=== PATIENT | male | born 1975 | race Caucasian/White ===

== ENCOUNTER 2022-04-05 07:58 | Outpatient (CLI) | payer BC, SELFPAY ==
--- NOTE | 2022-04-19 19:55 | WPDHOMESLEEP ---
Sleep Study - Home Unattended Date of Study: 03/29/22 Ordering Provider: Aspen Shell MD Interpreting Provider: Deyanira Gregory, DO Home Sleep Study Type: Apnea Link Air Height: 1.88 m Weight: 127.006 kg Body Mass Index: 35.9 Neck Circumference (inches): 18.5 [place]: 10 Reason for Sleep Study Unrefreshing sleep Sleep History The patient is a 47-year-old male with seasonal allergies, prediabetes, hyperlipidemia and nocturia had a sleep study ordered by his primary care for evaluation of sleep apnea. The patient frequently awakens from sleep short of breath. He frequently awakens at night with heartburn, belching or cough. He frequently snores loud enough that others complain. He frequently has trouble sleeping when he has a cold. He occasionally wakes up gasping for air throughout the night. He occasionally has breathing problems at night observed by himself or others. He frequently sweats excessively at night. He frequently has heart palpitations or irregular heartbeats during the night. He rarely falls asleep during the day and rarely falls asleep while driving. He occasionally experiences loss of muscle tone when extremely emotional. He occasionally has trouble at school or work due to sleepiness. He rarely feels unable to move 1 waking up or falling asleep. He rarely experiences vivid dreamlike scenes upon awakening or falling asleep. He rarely feels afraid of going to sleep. He occasionally has nightmares and occasionally remembers his dreams. He frequently has thoughts racing through his mind. He rarely feels sad or depressed. He occasionally has anxiety. He frequently has muscular tension. He occasionally notices parts of his body jerk. He occasionally kicks during the night. He rarely experiences crawling and aching feelings in his legs and rarely has leg pain during the night. He frequently grinds his teeth during sleep and occasionally awakens with morning jaw pain. He is frequently bothered by pain during the day and occasionally awakened by pain during the night. He constantly wakes up feeling stiff in the morning. He frequently wakes up with sore achy muscles. He frequently wakes up with pain in the neck, spine or other joints. He goes to bed between 10-11 p.m. on weekdays and between 11:00 p.m. and midnight on the weekends. the amount of time it takes for him to fall asleep is variable. He wakes up anywhere from 2-8 times per night to urinate. The amount of time it takes for him to fall back asleep is variable. He wakes up at 7:30 a.m. on weekdays and between 730-9 a.m. on the weekends. He typically gets 6-8 hours of sleep per night. He will stay in bed for 5-10 minutes after waking up in the morning. He currently lives with his in 18-year-old child. He does not consume any caffeinated beverages within 2 hours of bedtime. He does not engage in physical exercise before bedtime. He will read and watch television before falling asleep. He does not take naps in the afternoon or the evening. He drinks 2-3 caffeinated beverages throughout the day. He will do have 2-8 alcoholic beverages throughout the month. He quit smoking cigarettes 10 years ago. He denies recreational drug use. [facility] Past Medical History Medical History Hyperlipidemia Osteoarthritis Prediabetes Surgical History Surgical History H/O arthroscopy of left knee (~2013) History of bilateral inguinal hernia repair 2012 History of hernia repair (~2012) Family History Family History Other Diabetes mellitus Family history of lung cancer Family history of throat cancer Social History Social History Social History: Patient is , he lives with his , Gudelia in [place]. José Miguel
[2022-04-19 20:06] VITALS: BMI 35.9
== END 2022-04-08 10:35 | disposition home or self-care (01) ==
PROVIDERS: PCP Family Medicine; Visit Provider Family Medicine
DX: G47.33 Obstructive sleep apnea (adult) (pediatric) (principal)
CPT/HCPCS: 95806

== ENCOUNTER 2022-04-22 08:22 | Outpatient (CLI) | payer BC, SELFPAY ==
--- NOTE | 2022-05-03 19:29 | WPDSLEEPSTUD ---
Sleep Study Date of Study: 04/22/22 Ordering Provider: Aspen Shell MD Interpreting Physician: Deyanira Gregory DO Sleep Study Type: CPAP Titration Height: 1.88 m Weight: 129.727 kg Body Mass Index: 36.7 Neck Circumference (inches): 19 [place]: 10 Reason for Sleep Study The patient had a home sleep test on 03/29/2022 that showed an overall AHI of 15.5 with desaturation down to 90%.? This is consistent with?moderate sleep apnea.? The patient had a central apnea index of 5.5 which is elevated (normal>5).? Sleep History The patient is a 47-year-old male with seasonal allergies, prediabetes, hyperlipidemia and nocturia had a sleep study ordered by his primary care for evaluation of sleep apnea.? The patient frequently awakens from sleep short of breath.? He frequently awakens at night with heartburn, belching or cough.? He frequently snores loud enough that others complain.? He frequently has trouble sleeping when he has a cold.? He occasionally wakes up gasping for air throughout the night.? He occasionally has breathing problems at night observed by himself or others.? He frequently sweats excessively at night.? He frequently has heart palpitations or irregular heartbeats during the night.? He rarely falls asleep during the day and rarely falls asleep while driving.? He occasionally experiences loss of muscle tone when extremely emotional.? He occasionally has trouble at school or work due to sleepiness.? He rarely feels unable to move 1 waking up or falling asleep.? He rarely experiences vivid dreamlike scenes upon awakening or falling asleep.? He rarely feels afraid of going to sleep.? He occasionally has nightmares and occasionally remembers his dreams.? He frequently has thoughts racing through his mind.? He rarely feels sad or depressed.? He occasionally has anxiety.? He frequently has muscular tension.? He occasionally notices parts of his body jerk.? He occasionally kicks during the night.? He rarely experiences crawling and aching feelings in his legs and rarely has leg pain during the night.? He frequently grinds his teeth during sleep and occasionally awakens with morning jaw pain.? He is frequently bothered by pain during the day and occasionally awakened by pain during the night.? He constantly wakes up feeling stiff in the morning.? He frequently wakes up with sore achy muscles.? He frequently wakes up with pain in the neck, spine or other joints.? He goes to bed between 10-11 p.m. on weekdays and between 11:00 p.m. and midnight on the weekends. the amount of time it takes for him to fall asleep is variable.? He wakes up anywhere from 2-8 times per night to urinate.? The amount of time it takes for him to fall back asleep is variable.? He wakes up at 7:30 a.m. on weekdays and between 730-9 a.m. on the weekends.? He typically gets 6-8 hours of sleep per night.? He will stay in bed for 5-10 minutes after waking up in the morning.? He currently lives with his in 18-year-old child.? He does not consume any caffeinated beverages within 2 hours of bedtime.? He does not engage in physical exercise before bedtime.? He will read and watch television before falling asleep.? He does not take naps in the afternoon or the evening.? He drinks 2-3 caffeinated beverages throughout the day.? He will do have 2-8 alcoholic beverages throughout the month.? He quit smoking cigarettes 10 years ago.? He denies recreational drug use. [facility] Past Medical History Medical History Hyperlipidemia Osteoarthritis Prediabetes Surgical History Surgical History H/O arthroscopy of left knee (~2013) History of bilateral inguinal hernia repair 2013 History of hernia repair (~2012) Family History Family History Other Diabetes mellitus Family history of lung cancer Family history of yurijesica
[2022-05-03 22:20] VITALS: BMI 36.7
== END 2022-04-23 06:02 | disposition home or self-care (01) ==
LOC: ANHCSM 08:58
PROVIDERS: PCP Family Medicine; Visit Provider Family Medicine
DX: G47.33 Obstructive sleep apnea (adult) (pediatric) (principal)
CPT/HCPCS: 95811

== ENCOUNTER 2022-04-29 09:29 | Outpatient (CLI) | payer BC, SELFPAY ==
--- NOTE | 2022-04-29 09:38 | ECHO_ITS ---
Patient Info Name: Rocky Grant Age: 47 years : 1975 Gender: Male Ht: 74 in Wt: 280 lbs BSA: 2.62 m2 HR: 94 bpm BP: 133 / 87 mmHg Technical Quality: Good Exam Date: 04/29/2022 9:52 AM Exam Location: [facility] Patient Status: Outpatient Admit Date: 04/29/2022 Staff Ordering Physician: Bozena Shell MD Sales Technician Home Theater: Tara Olivera RDCS Attending Provider: Bozena Shell MD Exam Type: CA echo doppler color flow Study Info Indications G47.31 - PRIMARY CENTRAL SLEEP APNEA Complete two-dimensional, color flow and Doppler transthoracic echocardiogram is performed. Summary 1. Complete two-dimensional, color flow and Doppler transthoracic echocardiogram is performed. 2. Left ventricular chamber dimension is normal. 3. Left ventricular systolic function is normal, estimated at 60-65%. 4. The left ventricular diastolic function is grade I diastolic dysfunction. 5. E/e' 6 is not elevated. 6. Global longitudinal strain is slightly abnormal at -16.9%. 7. Left atrial chamber dimension is mildly enlarged. 8. There is trace tricuspid valve regurgitation. 9. No pulmonary hypertension, estimated pulmonary arterial systolic pressure is 23 mmHg. Left Ventricle E/e' 6 is not elevated. Global longitudinal strain is slightly abnormal at -16.9%. Left ventricular chamber dimension is normal. Left ventricular systolic function is normal, estimated at 60-65%. The left ventricular diastolic function is grade I diastolic dysfunction. Right Ventricle Right ventricular systolic function is normal and with normal TAPSE 2.0 cm. Right ventricular chamber dimension is normal. Left Atria Left atrial chamber dimension is mildly enlarged. Right Atria Right atrial chamber dimension is normal. Aortic Valve The aortic valve is trileaflet. There is no aortic valve stenosis. There is no aortic valve regurgitation. Pulmonic Valve There is no pulmonic regurgitation. Mitral Valve There is no mitral valve stenosis. There is no mitral valve regurgitation. Tricuspid Valve There is trace tricuspid valve regurgitation. No pulmonary hypertension, estimated pulmonary arterial systolic pressure is 23 mmHg. Pericardium/Pleural There is no pericardial effusion. Inferior Vena Cava Normal inferior vena cava with >50% collapse upon inspiration consistent with normal right atrial pressure, 5 mmHg. Aorta The aortic root size at the sinus of Valsalva is normal. Left Ventricular Outflow Tract Name Value Normal LVOT Doppler LVOT Peak Gradient 4 mmHg LVOT Mean Gradient 2 mmHg LVOT VTI 19 cm LVOT VTI/AV VTI Ratio 0.8 Pulmonic Valve Name Value Normal RVOT Doppler RVOT Peak Gradient 2 mmHg PV Doppler PV Peak Gradient 6 mmHg
== END 2022-04-29 09:30 | disposition home or self-care (01) ==
LOC: ANHCARD 09:30
PROVIDERS: PCP Family Medicine; Visit Provider Family Medicine
DX: G47.31 Primary central sleep apnea (principal); G47.33 Obstructive sleep apnea (adult) (pediatric)
CPT/HCPCS: 93306